=== PATIENT | female | born 1950 | race Caucasian/White ===

== ENCOUNTER 2016-11-19 07:52 | Emergency (ER) | payer OTHER ==
[~2016-11-19] VITALS: Ht 162.6 cm; Wt 76.2 kg
[~2016-11-19 07:52] MED LIST: AMLODIPINE; ATIVAN0.5 MG PO; ATIVAN1 MG PO; CEFTIN500 MG PO; CIPROFLOXACIN500 M1 PO; COZAAR; COZAAR 50 MG TA50 MG PO; EXCEDRIN CAPLE1 EACH PO; FLAGYL 250 MG250 MG PO; FOLIC ACID1 MG PO; FUROSEMIDE 40 M40 M1 PO; HYDROCODON-ACE1 EAC1 PO; HYDROCODON-ACE1 EAC8 PO; KEPPRA1000 MG PO; LAMICTAL 25 MG25 M1 PO; LIPITOR 20 MG T20 M1 PO; LOMOTIL TABLET1 EACH PO; MOTION RELIEF25 MG PO; NEURONTIN 300300 M1 PO; NORCO 7.5-3251 EACH PO; NORVASC 5 MG TAB5 MG PO; ONDANSETRON HCL4 M3 PO; OXCARBAZEPINE150 MG PO; PHENERGAN 25 MG25 MG PO; POTASSIUM CHLO10 ME1 PO; PREDNISONE 5 MG5 M1 PO; PROPRANOLOL 1010 M1 PO; RIZATRIPTAN10 M1 PO; TRAMADOL 50 MG50 MG PO; TYLENOL EX-STR500 M2 PO; ULTRAM 50MG TAB50 MG PO; VIMPAT100 MG PO; ZANTAC 150MG T150 M1 PO; ZIAC 5-6.25 MG1 EACH PO; ZOFRAN 4 MG ORAL4 M1 DIS; ZOFRAN ODT4 MG PO; ZOFRAN4 MG PO; ZYRTEC10 M2 PO
[2016-11-19] MEDS ORDERED: NORCO 5-325 TA1 EACH PO (10:10)
== END 2016-11-19 10:20 | disposition home or self-care (01) ==
LOC: ER 07:52
DX: S02.2XXA Fracture of nasal bones, initial encounter for closed fracture (principal); S01.512A Laceration without foreign body of oral cavity, initial encounter; S01.521A Laceration with foreign body of lip, initial encounter; I10 Essential (primary) hypertension; Z86.73 Personal history of transient ischemic attack (TIA), and cerebral infarction without residual deficits; Z98.890 Other specified postprocedural states; Z90.710 Acquired absence of both cervix and uterus; Z88.2 Allergy status to sulfonamides; Z88.8 Allergy status to other drugs, medicaments and biological substances; W18.39XA Other fall on same level, initial encounter; Y93.01 Activity, walking, marching and hiking; Y92.89 Other specified places as the place of occurrence of the external cause; Y99.8 Other external cause status

== ENCOUNTER → 2017-02-08 | Outpatient (CLI) | payer OTHER ==
[~2017-02-08] MED LIST changes: +NORCO 5-325 TA1 EACH PO
== END ==
LOC: CAT 02-04 15:02
DX: J32.0 Chronic maxillary sinusitis (principal); J32.2 Chronic ethmoidal sinusitis

== ENCOUNTER → 2017-03-17 | Outpatient (CLI) | payer OTHER | LOC: RAD 12:20 | DX: M16.11 Unilateral primary osteoarthritis, right hip (principal) ==

== ENCOUNTER → 2017-07-12 | Outpatient (CLI) | payer OTHER ==
[~2017-07-12] MED LIST changes: +AFRIN30 ML NASAL; +CLARITIN10 MG PO; +LASIX 40 MG TAB40 M2 PO; +MUCINEX600 MG PO; +NORVASC5 MG PO; +TRAZODONE HCL50 MG PO
== END ==
LOC: MRI 12:14
DX: S43.421A Sprain of right rotator cuff capsule, initial encounter (principal); M19.011 Primary osteoarthritis, right shoulder; X58.XXXA Exposure to other specified factors, initial encounter; Y93.89 Activity, other specified; Y92.89 Other specified places as the place of occurrence of the external cause; Y99.8 Other external cause status

== ENCOUNTER 2017-08-24 07:48 | Inpatient (IN) | payer OTHER ==
[2017-08-15 14:08] LABS: HEMATOCRIT 37.9 % (37.0-47.0); HEMOGLOBIN 12.8 gm/dL (12.0-15.0); MCH 32.5 pg (26.0-34.0); MCHC 33.9 g/dL (28.0-37.0); MCV 95.9 fL (80.0-100.0); RBC 3.95 mil/uL (4.20-5.00); RDW 14.9 % (10.5-14.5); WBC 8.8 thou/uL (4.0-11.0)
[2017-08-15 14:10] LABS: URINE BILIRUBIN NEGATIVE (Negative); URINE BLOOD NEGATIVE (Negative); URINE CLARITY CLEAR; URINE COLOR YELLOW; URINE GLUCOSE-RANDOM* NEGATIVE (Negative); URINE KETONES NEGATIVE (Negative); URINE LEUKOCYTES-REFLEX NEGATIVE (Negative); URINE NITRITE-REFLEX NEGATIVE (Negative); URINE PROTEIN (DIPSTICK) NEGATIVE (Negative); URINE SPECIFIC GRAVITY 1.015 (1.005-1.035); URINE UROBILINOGEN 0.2 E.U./dl (0.2-1.0)
[2017-08-15 14:15] LABS: CREATININE 1.1 mg/dL (0.6-1.0); POTASSIUM 5.3 mmol/L (3.5-5.1)
[2017-08-15 14:22] LABS: PROTIME 10.3 Seconds (9.3-11.4)
[~2017-08-24] VITALS: Ht 162.6 cm; Wt 80.3 kg
--- NOTE | ~2017-08-24 | O ---
[facility] [address] OPERATIVE REPORT Name: TAYLOR STERN Room #: 411-P [facility] IN M.R.#: [id number] Admission: 08/24/17 Attend Phys: Josef Henriquez Discharge: 08/25/17 Date of : 48 Report #: [id number] THIS REPORT FOR: //name// CC: Peter Trejo DATE OF SERVICE: 08/24/2017 PREOPERATIVE DIAGNOSIS: Right shoulder osteoarthritis with biceps tendinopathy. POSTOPERATIVE DIAGNOSIS: Right shoulder osteoarthritis with biceps tendinopathy. PROCEDURE PERFORMED: Right total shoulder arthroplasty with open biceps tenodesis. SURGEON: Josef Trejo. REINSURANCE CLAIMS ANALYST: Olivia Tavera PA-C. ANESTHESIA: General with preoperative ultrasound-guided interscalene block. FLUIDS: 1000 mL crystalloid. ESTIMATED BLOOD LOSS: Approximately 50 mL. IMPLANTS UTILIZED: DePuy Global Unite size 10 standard stem with a 135 degree size 10 proximal body 44 x 18 eccentric humeral head with a size 40 anchor peg glenoid. DESCRIPTION OF PROCEDURE: After proper identification of the patient and operative site in preoperative holding area, the operative site was signed by myself. Prophylactic antibiotics given. The patient elected to receive an interscalene block after reviewing the risks, benefits, alternatives and potential complications with anesthesia. After a satisfactory ultrasound-guided block, the patient was brought back to the operative suite. After induction of satisfactory general endotracheal anesthesia, she was carefully positioned in the beach-chair position with head of bed elevated approximately 40 degrees. Care was taken to position the head and neck in a neutral alignment. The right shoulder was sterilely prepped and draped in usual manner and final skin draping was with Ioban. A Hallspot limb positioning system was utilized throughout the entire procedure to aid in positioning of the upper extremity. Anterior deltopectoral approach was planned. Skin was incised sharply. Full thickness skin flaps were developed. Cephalic vein was identified and retracted laterally and the deltopectoral interval was opened. Subdeltoid space was carefully freed bluntly and a Ced deltoid retractor was then used to retract the deltoid. At [facility] [address] [place] [address] OPERATIVE REPORT Name: JARREDTAYLOR SUE Room #: 411-P [facility] IN M.R.#: [id number] Admission: 08/24/17 Attend Phys: Josef Henriquez Discharge: 08/25/17 Date of : 48 Report #: [id number] this point, upper border of the pectoralis major was carefully released and the long head of biceps tendon was tenodesed to the undersurface of the pectoralis major. This was subsequently repaired at the end of the procedure. Long head biceps tendon was followed proximally. Bicipital groove was opened as well as the rotator interval. Tenosynovitis was appreciated about the biceps tendon as well as partial thickness tearing. Anterior circumflex vessels were identified, tied and ligated and then cauterized. A lesser tuberosity osteotomy was performed with an osteotome and the anterior capsule was carefully released off the glenoid neck. At this point, the humeral head was delivered. Advanced degenerative changes were noted on both sides of the joint and 135-degree template was used to plan the humeral head osteotomy. The rotator cuff was intact. There was some thinning of the supraspinatus noted, but it was otherwise intact with no evidence of real fraying or tearing, just more thinning. The rotator cuff was carefully protected and a humeral head osteotomy in approximately 25 degrees of retroversion was performed. The head measured 44 mm on the backtable in diameter. Peripheral osteophytes were carefully removed. The humerus was then reamed by hand up to a size 10 stem. It was broached and then a trial implant was seated. The patient had excellent bone quality and the final mm or so of insertion, it seemed like the implant went to bottom out and I did not want to push this any further for risk of periprosthetic fracture of the humerus. A protection plate was applied. The shoulder was reduced. Anterior capsule was excised off the subscapularis and then a Bankart retractor was placed anteriorly to retract the subscap and protect it. The remaining biceps tendon and labrum was carefully released circumferentially as well as the inferior capsule off the inferior glenoid. Care was taken to identify and protect the axillary nerve throughout the entire procedure. Wound was thoroughly irrigated with normal saline. glenoid retractors were placed. There was excellent glenoid visualization. A 40 mm glenoid was chosen, 44 mm glenoid was templated, but the 40 provided the best overall fit due to the size of her glenoid. This was positioned. Guide pin was inserted. Glenoid face was reamed. Any remaining soft tissue was carefully removed. The central peg was drilled. This bone was saved for bone grafting on the glenoid central peg. The multipin guide was inserted and the peripheral pegs were drilled. Derotation pegs were utilized. All of the drill holes were contained. Glenoid vault was thoroughly irrigated with normal saline. FloSeal was utilized for anticoagulation. This was removed with irrigation and suction while the trial was prepared on the back table as well while the implant was bone grafted on the back table and cement was prepared. Trial was fully a 40 mm glenoid trial, was fully seated, had excellent stability and this was removed and then the FloSeal was utilized. Next, Tuohy syringe was used to inject and pressurize peripheral pegs. There was no cement in the central aspect. Any excess bone was removed and then the implant was carefully impacted into position, it was fully seated and held in place until the cement had cured and the glenoid was stable. Wound was thoroughly irrigated with normal saline. The glenoid was protected with a plastic tear and then the humerus was approached. A 44 x 18 eccentric humeral head provided the best overall recreation of the proximal humeral anatomy and [address] [address] OPERATIVE REPORT Name: TAYLOR STERN Room #: 411-P [facility] IN M.R.#: [id number] Admission: 08/24/17 Attend Phys: Josef Henriquez Discharge: 08/25/17 Date of : 48 Report #: [id number] the shoulder had approximately 50% translation when reduced posteriorly. Trial implants were removed. The Global Unite broach was carefully inserted. It was removed. Four drill holes were placed around the lesser tuberosity and within the bicipital groove with #2 FiberWires. These were used for the subsequent repair. The inferior 2 sutures were placed around the implant which had been prepared on the back table, assembled and tightened. It was carefully impacted into position. Next, the head was placed. Rotation was verified and it was impacted into position. Shoulder was reduced. It was stable with a satisfactory recreation of the proximal humeral anatomy. The subscapularis was reduced and repaired with modified Jett-Horace technique with four #2 FiberWires and then the lateral portion of the rotator interval was repaired in a [id number]-cf-kkxdh manner with #2 FiberWire. The patient could only externally rotate about 5 degrees preoperatively and she could easily externally rotated 40-45 degrees following the repair and capsular releases. The wound was again thoroughly irrigated with normal saline, dried, 1 gram of vancomycin powder was utilized half of it within the deep tissues, half of it more superficial. 0 Vicryl, 2-0 Vicryl and final skin closure was with a running Monocryl stitch. Dermabond was applied to seal the wound. Sterile dressing was applied as well as a sling and abduction pillow. Qualified criminal legal assistant was utilized throughout the entire procedure to aid in patient limb positioning, visualization and retraction of the soft tissues, instrument passage closure and sling and dressing application. <ELECTRONICALLY SIGNED> By: Josef Trejo MD 08/26/17 1304 1115 1144 Josef Trejo MD /nt
--- NOTE | ~2017-08-24 | H ---
[facility] [place] [address] HISTORY AND PHYSICAL Name: TAYLOR STERN Room #: 411-P ADM IN M.R.#: [id number] Admission: 08/24/17 Attend Phys: Josef Henriquez Discharge: Date of : 48 Report #: [id number] THIS REPORT FOR: //name// CC: Peter Trejo CHIEF COMPLAINT: Right shoulder pain. HISTORY OF PRESENT ILLNESS: The patient initially presented in our office complaining of persistent right shoulder pain. The patient reports that she has fallen on the shoulder approximately 6 times in the past. The pain following her most recent fall has not improved and she has been using a cane for assisted ambulation. The patient reports worsening right shoulder pain with use. The patient reports relief is better, but not long lasting with medications, heat and rest. PAST MEDICAL HISTORY: Significant for arthritis, easy bruising, fibromyalgia, hypertension, rheumatoid arthritis, seizure disorder and other illness. PAST SURGICAL HISTORY: Hysterectomy, appendectomy and tonsillectomy. REVIEW OF SYSTEMS: GENERAL: Denies any fevers, chills or malaise. MUSCULOSKELETAL: Positive for joint pain, stiffness and arthritis. The remainder of the complete review of systems is negative. FAMILY HISTORY: Significant for arthritis and heart disease. SOCIAL HISTORY: The patient is left handed. She is and lives with others. She denies any alcohol use and exercises approximately 5-10 hours per week. MEDICATIONS: Lamotrigine 100 mg oral tabs, propranolol HCL 10 mg oral tabs, amlodipine besylate 5 mg oral tabs, lorazepam and [place] 7.5/325. ALLERGIES: SULFA. PHYSICAL EXAMINATION: VITAL SIGNS: Height 64 inches, weight 164 pounds and BMI 28. GENERAL: The patient is awake and alert, in no acute distress. HEART: Regular rate and rhythm. No murmurs. PULMONARY: Clear to auscultation bilaterally. ABDOMEN: Soft, nontender. Bowel sounds positive. EXTREMITIES: Right shoulder extremity is neurovascularly intact. Skin is nontender, dry and intact. Passive flexion is measured to 100 degrees, passive external rotation to 5 degrees, passive internal rotation to posterior superior iliac spine. Tenderness to palpation on the anterolateral shoulder as well as [facility] [address] [place] [address] HISTORY AND PHYSICAL Name: TAYLOR STERN Room #: [facility] ADM IN M.R.#: [id number] Admission: 08/24/17 Attend Phys: Josef Henriquez Discharge: Date of : 48 Report #: [id number] the posterolateral shoulder. No tenderness to palpation of the sternoclavicular joint, clavicle, AC joint, acromion, rhomboids, upper trapezius or proximal humerus. Strength Testing: Supraspinatus 5/5, external rotation 5/5, internal rotation 5/5 and deltoids 5/5. Pain with strength testing of the rotator cuff is noted. Neer and Orellana tests are positive. X-RAYS: X-rays performed in the office on 07/19/2017, ordered and interpreted by Dr. Josef Trejo, showed two views of the right shoulder that showed no degenerative change at the acromioclavicular joint. There is a type 2 acromion. The glenohumeral joint is well reduced with significant degenerative change noted here. IMAGING STUDIES: Report of the MRI of the right shoulder, performed at [facility] on 07/12/2017, shows moderate glenohumeral joint osteoarthritis. Chronic degenerative tear and attenuation of the posterior and inferior labrum was slight, posterior subluxation of the humeral head. Intact rotator cuff. ASSESSMENT: Right shoulder pain, osteoarthritis. PLAN: MRI findings were reviewed with the patient in the office, we have reviewed continued non-operative management versus operative intervention. We discussed performing a right total shoulder arthroplasty with biceps tenodesis and addressing the above-mentioned diagnosis. The risks, benefits, alternatives and potential treatments were reviewed. The short-term hospitalization was reviewed. We have discussed anticoagulation and DVT prophylaxis postoperatively. We discussed the potential time in a sling, the need for physical therapy and potential time off work and/or return on a awwfeum-xc-mxcvo duty type basis. Preoperatively, the patient will use benzoyl peroxide soap for 7 days preop. Pain management was discussed and pain medications will be given on the day of surgery as well as a prescription for pain medication to take at home. The anesthesiologist will discuss the utilization of a nerve block preoperatively or postoperatively. He may have this elected to perform postoperative pain. We discussed the [employer] website where further information and videos pertaining to the above-mentioned procedure can be reviewed. Arthroplasty handout had been given to the patient at previous appointment. The surgery had been demonstrated using a shoulder model. We discussed the need for prophylactic antibiotic treatment for invasive dental procedures postoperatively. The need for serial radiographic monitoring every 1-2 years postoperatively was also discussed. Pending medical clearance, the patient has elected to proceed with the above-mentioned procedure. I have recommended that the patient continue to use a cane for assisted ambulation given her history of frequent falls. Questions were encouraged, all were [facility] [address] [place] [address] HISTORY AND PHYSICAL Name: TAYLOR STERN Room #: 411-P ADM IN M.R.#: [id number] Admission: 08/24/17 Attend Phys: Josef Henriquez Discharge: Date of : 48 Report #: [id number] answered and the patient demonstrated understanding of the above-mentioned discussion. <ELECTRONICALLY SIGNED> By: LIANA Adler 08/25/17 1232 1543 1611 LIANA Adler /nt
--- NOTE | ~2017-08-24 | EKG ---
[address] [address] ELECTROCARDIOGRAM REPORT Name: TAYLOR STERN Room #: PRE IN .R.#: [id number] Admission: Attend Phys: Josef Henriquez Discharge: Date of : 48 Report #: [id number] THIS REPORT FOR: //name// [facility] Test Date: 2017-08-15 Test Time: 13:38:28 Pat Name: TAYLOR STERN Department: Room: Gender: F Pharmacy Ancillary: Hermilo VERGARA : 1950 Requested By: Josef Trejo Order Number: [id number] MD: Ulysses Douglass Measurements Intervals [place] Rate: 55 P: 13 OR: 162 QRS: 2 QRSD: 100 T: 15 QT: 447 QTc: 428 Interpretive Statements Sinus bradycardia Otherwise no significant abnormality Compared to ECG 10/14/2015 13:37:18 No significant changes Electronically Signed On 08-16-2017 13:18:48 CDT by Ulysses Douglass [email or web address] <ELECTRONICALLY SIGNED> By: Ulysses Douglass MD, [facility] 08/16/17 1318 1338 1338 Ulysses Douglass MD, FACC /EPI
[2017-08-24 08:30] VITALS: BP 157/74
[2017-08-24 20:03] VITALS: BP 155/61
[2017-08-25 04:52] VITALS: BP 132/54
[2017-08-25 06:33] LABS: HEMATOCRIT 32.5 % (37.0-47.0); HEMOGLOBIN 10.9 gm/dL (12.0-15.0)
[2017-08-25 07:20] VITALS: BP 133/60
[2017-08-25 11:50] LABS: POTASSIUM 4.1 mmol/L (3.5-5.1)
[2017-08-25 14:26] VITALS: BP 133/60
== END 2017-08-25 16:17 | disposition home or self-care (01) | DRG 470 ==
LOC: TBA 07:48 → OR 07:48 → PRE 09:03 → EDSTATUS 09:23 → OR 09:24 → PRE 12:29 → 4N 15:19 → OR 15:19 → ENTRNSPT 08-25 16:00 → 4N 08-25 16:17
PROVIDERS: Orthopaedic Surgery Sports Medicine; Physician Assistant Surgical
DX: M19.011 Primary osteoarthritis, right shoulder (principal); M75.21 Bicipital tendinitis, right shoulder; G40.909 Epilepsy, unspecified, not intractable, without status epilepticus; I10 Essential (primary) hypertension; M06.9 Rheumatoid arthritis, unspecified; Z90.710 Acquired absence of both cervix and uterus; Z90.49 Acquired absence of other specified parts of digestive tract; Z82.61 Family history of arthritis; Z82.49 Family history of ischemic heart disease and other diseases of the circulatory system; Z88.2 Allergy status to sulfonamides; Z88.8 Allergy status to other drugs, medicaments and biological substances; Z79.899 Other long term (current) drug therapy
CPT/HCPCS: 10790; 50010; 50101; 50172; 50386; 50417; 50697; 50733; 50935; 51751; 51771; 52138; 53000; 53078; 54118; 55435; 56521; 56524; 56525; 56526; 56530; 57095; 62110; 62900; 64039; 70005

== ENCOUNTER 2019-11-02 10:47 | Emergency (ER) | payer OTHER ==
[~2019-11-02] VITALS: Ht 162.6 cm; Wt 81.7 kg
[2019-11-02] MEDS ORDERED: NORCO 5-325 TA1 EAC1 PO (12:00)
[2019-11-02 12:15] VITALS: BP 127/84
== END 2019-11-02 12:15 | disposition home or self-care (01) ==
LOC: ER 10:47
DX: S50.02XA Contusion of left elbow, initial encounter (principal); M79.632 Pain in left forearm; I10 Essential (primary) hypertension; M79.7 Fibromyalgia; Z86.718 Personal history of other venous thrombosis and embolism; Z86.73 Personal history of transient ischemic attack (TIA), and cerebral infarction without residual deficits; Z90.89 Acquired absence of other organs; Z90.710 Acquired absence of both cervix and uterus; Z79.899 Other long term (current) drug therapy; Z88.8 Allergy status to other drugs, medicaments and biological substances; Z88.2 Allergy status to sulfonamides; W01.0XXA Fall on same level from slipping, tripping and stumbling without subsequent striking against object, initial encounter; Y93.89 Activity, other specified; Y92.89 Other specified places as the place of occurrence of the external cause; Y99.8 Other external cause status

== ENCOUNTER 2020-06-05 17:57 | Emergency (ER) | payer OTHER ==
[~2020-06-05] VITALS: Ht 162.6 cm; Wt 77.1 kg
[~2020-06-05 17:57] MED LIST changes: +NORCO 5-325 TA1 EAC1 PO
[2020-06-05 20:30] VITALS: BP 155/66
== END 2020-06-05 20:30 | disposition home or self-care (01) ==
LOC: ER 17:57
DX: M54.5 Low back pain (principal); R51.9 Headache, unspecified; M25.511 Pain in right shoulder; I10 Essential (primary) hypertension; Z90.710 Acquired absence of both cervix and uterus; Z90.89 Acquired absence of other organs; Z79.899 Other long term (current) drug therapy; Z88.2 Allergy status to sulfonamides; Z88.8 Allergy status to other drugs, medicaments and biological substances; W01.0XXA Fall on same level from slipping, tripping and stumbling without subsequent striking against object, initial encounter; Y93.89 Activity, other specified; Y92.89 Other specified places as the place of occurrence of the external cause; Y99.8 Other external cause status

== ENCOUNTER 2021-04-03 11:10 | Emergency (ER) | payer OTHER ==
[~2021-04-03] VITALS: Ht 162.6 cm; Wt 81.2 kg
--- NOTE | 2021-04-03 11:46 | EKG ---
[place] [address] [facility] [place] [address] ELECTROCARDIOGRAM REPORT Name: TAYLOR STERN Room #: PRE [facility]..#: [id number] Admission: Attend Phys: Discharge: Date of : 48 Report #: [id number] [facility] ED Test Date: 2021-04-03 Test Time: 11:42:30 Pat Name: TAYLOR STERN Department: Room: Gender: F Business Services Sales Representative: RYAN : 1950 Requested By: Farhat Alejandre Order Number: [id number] MD: Baltazar Jameson Measurements Intervals [place] Rate: 53 P: 6 WV: 171 QRS: -7 QRSD: 101 T: 20 QT: 419 QTc: 394 Interpretive Statements Sinus rhythm Low voltage, precordial leads Left ventricular hypertrophy Baseline wander in lead(s) V1,V5,V6 Compared to ECG 08/15/2017 13:38:28 Low QRS voltage now present Left ventricular hypertrophy now present Sinus bradycardia no longer present Electronically Signed On 04-03-2021 11:46:32 CDT by Baltazar Jameson [email or web address] <ELECTRONICALLY SIGNED> By: Baltazar Jameson MD, [facility] 04/03/21 1146 1142 114 Baltazar Jameson MD, FAC /EPI
[2021-04-03 12:04] LABS: URINE BILIRUBIN NEGATIVE (Negative); URINE BLOOD NEGATIVE (Negative); URINE CLARITY CLEAR; URINE COLOR YELLOW; URINE GLUCOSE-RANDOM* NEGATIVE (Negative); URINE KETONES NEGATIVE (Negative); URINE LEUKOCYTES-REFLEX TRACE (Negative); URINE NITRITE-REFLEX NEGATIVE (Negative); URINE PROTEIN (DIPSTICK) NEGATIVE (Negative); URINE UROBILINOGEN 0.2 E.U./dl (0.2-1.0)
[2021-04-03 12:10] LABS: ABSOLUTE NEUTROPHILS 6.5 thou/uL (1.4-8.2); BASOPHILS 0.9 % (0.0-2.0); EOSINOPHILS 1.1 % (0.0-3.0); HEMATOCRIT 27.8 % (37.0-47.0); HEMOGLOBIN 8.8 gm/dL (12.0-15.0); LYMPHOCYTES 17.4 % (24.0-44.0); MCHC 31.7 g/dL (28.0-37.0); MCV 82.1 fL (80.0-100.0); MONOCYTES 10.3 % (1.0-8.0); PLATELET COUNT 412 thou/uL (150-400); POLYS 70.3 % (36.0-66.0); RBC 3.39 mil/uL (4.20-5.00); RDW 18.3 % (10.5-14.5); WBC 9.2 thou/uL (4.0-11.0)
[2021-04-03 12:25] LABS: CALCIUM 9.2 mg/dL (8.5-10.1); CREATININE 1.1 mg/dL (0.6-1.0); POTASSIUM 5.6 mmol/L (3.5-5.1)
[2021-04-03 13:53] LABS: ANISOCYTOSIS 2+
[2021-04-03 16:58] VITALS: BP 134/51
== END 2021-04-03 17:05 | disposition home or self-care (01) ==
LOC: ER 11:10
PROVIDERS: Student in an Organized Health Care Education/Training Program
DX: R42 Dizziness and giddiness (principal); R51.9 Headache, unspecified; I10 Essential (primary) hypertension; M79.7 Fibromyalgia; Z90.49 Acquired absence of other specified parts of digestive tract; Z90.710 Acquired absence of both cervix and uterus; Z98.890 Other specified postprocedural states; Z79.891 Long term (current) use of opiate analgesic; Z79.899 Other long term (current) drug therapy; Z88.5 Allergy status to narcotic agent; Z88.2 Allergy status to sulfonamides; Z88.8 Allergy status to other drugs, medicaments and biological substances; Z88.6 Allergy status to analgesic agent; Z88.3 Allergy status to other anti-infective agents; Z91.041 Radiographic dye allergy status

== ENCOUNTER 2021-06-28 07:01 | Emergency (ER) | payer OTHER ==
[~2021-06-28] VITALS: Ht 160 cm; Wt 81.2 kg
--- NOTE | ~2021-06-28 | EMS ---
[address] [address] EMS Patient Care Report Name: TAYLOR STERN Room #: DEP MAY Espinoza#: [id number] Admission: 06/28/21 Attend Phys: Discharge: 06/28/21 Date of : 48 Report #: [id number] THIS REPORT FOR: //name// Report Transmitted: 06/29/2021 14:31 EMS Care Summary [place], [place]/[facility] Incident [id number] @ 06/28/2021 06:13 Incident Location [address] [place] [address] 803 Patient TAYLOR STERN Female, 71 Years 1950 Patient Address [address] [place] [address] [place] [address] Patient History Hypertension (HTN),Seizures, Patient Allergies No known allergies, Patient Medications Other, Chief Complaint vertigo Disposition Transported No Lights/Benjamin Dispatch Reason Sick Person Transported To [facility] Narrative patient is found sitting on a couch at the scene. patient states that she woke up this morning and was having a vertigo episode. patient says that this has happened before and that it usually triggers a headache, which it has done. [address] [address] EMS Patient Care Report Name: TAYLOR STERN Room #: DEP Olga#: [id number] Admission: 06/28/21 Attend Phys: Discharge: 06/28/21 Date of : 48 Report #: [id number] patient she was to be transported because she is afraid to stand because of possible falls. patient has not had any falls today or syncope. patient has no obvious signs stroke. patient denies any illness or other new pain. patient does not appear to be in any distress. patient has no obvious injuries. patient remains alert during transport. Initial Vitals @06:38P: 54,R: 14,BP: 174/67,Pain: 9/10,GCS: 15,CO: 2,SpO2: 95,Revised Trauma: 12, @06:36P: 56,R: 16,BP: 187/78,Pain: 9/10,GCS: 15,SpO2: 96,Revised Trauma: 12, Assessments @06:26MENTAL:No Abnormalities,SKIN:No Abnormalities,HEENT:Head/Face: No Abnormalities,Eyes: No Abnormalities,Neck/Airway: No Abnormalities,LUNG SOUNDS:General: No Abnormalities,Left Upper: No Abnormalities,Right Upper: No Abnormalities,Left Lower: No Abnormalities,Right Lower: No Abnormalities,ABDOMEN:General: No Abnormalities,Left Upper: No Abnormalities,Right Upper: No Abnormalities,Left Lower: No Abnormalities,Right Lower: No Abnormalities,PELVIS//GI:No Abnormalities,EXTREMITIES:Left Arm: No Abnormalities,Right Arm: No Abnormalities,Left Leg: No Abnormalities,Right Leg: No Abnormalities,PULSE:NEURO:No Abnormalities, Impression Dizziness Procedures @06:26 ALS Assessment Response: UnchangedSucceeded @06:31 Stretcher Response: Unchanged Timeline 06:00,Call Received 06:00,Dispatch Notified 06:13,Dispatched 06:15,En Route 06:23,On Scene 06:26,At Patient 06:26,ALS Assessment,Response: UnchangedSucceeded, 06:31,Stretcher,Response: Unchanged 06:36,BP: 187/78 M,PULSE: 56,RR: 16 R,SPO2: 96 Ox,ETCO2: ,BG: ,PAIN: 9,GCS: 15, 06:38,BP: 174/67 M,PULSE: 54,RR: 14 R,SPO2: 95 Ox,ETCO2: ,BG: ,PAIN: 9,GCS: 15, 06:41,Depart Scene 07:30,At Destination 07:30,Call Closed Disclaimer [address] [address] EMS Patient Care Report Name: TAYLOR STERN Room #: DEP Olga#: [id number] Admission: 06/28/21 Attend Phys: Discharge: 06/28/21 Date of : 48 Report #: [id number] v1.1 Copyright 2021 [employer] This EMS Care Summary contains data elements from the applicable legal record (which may be displayed differently). It is designed to provide pertinent information for the following purposes: continuity of care, clinical quality, and state data reporting. The complete legal record is available to ED staff and administrators of the receiving hospital in [employer] Patient Tracker. All data is provided "as is."
[2021-06-28] MEDS ORDERED: IRON325 M1 PO (07:10)
[2021-06-28] MEDS ORDERED: TYLENOL325 MG PO (07:10)
[2021-06-28 07:18] LABS: ABSOLUTE NEUTROPHILS 6.5 thou/uL (1.4-8.2); BASOPHILS 0.6 % (0.0-2.0); HEMATOCRIT 41.4 % (37.0-47.0); HEMOGLOBIN 13.2 gm/dL (12.0-15.0); LYMPHOCYTES 16.1 % (24.0-44.0); MCH 30.5 pg (26.0-34.0); MCV 95.4 fL (80.0-100.0); MONOCYTES 7.9 % (1.0-8.0); PLATELET COUNT 307 thou/uL (150-400); POLYS 74.4 % (36.0-66.0); RBC 4.34 mil/uL (4.20-5.00); RDW 18.3 % (10.5-14.5); WBC 8.7 thou/uL (4.0-11.0)
[2021-06-28 07:45] LABS: CALCIUM 9.5 mg/dL (8.5-10.1); CREATININE 1.2 mg/dL (0.6-1.0); POTASSIUM 4.5 mmol/L (3.5-5.1)
[2021-06-28 07:51] LABS: ALBUMIN 4.3 g/dL (3.4-5.0); TOTAL BILIRUBIN 0.4 mg/dL (0.2-1.0); TOTAL PROTEIN 7.3 g/dL (6.4-8.2)
[2021-06-28] MEDS ORDERED: DIAZEPAM2 MG PO (09:19)
[2021-06-28 09:20] LABS: URINE BLOOD NEGATIVE (Negative); URINE CLARITY CLEAR; URINE COLOR YELLOW; URINE GLUCOSE-RANDOM* NEGATIVE (Negative); URINE KETONES NEGATIVE (Negative); URINE LEUKOCYTES-REFLEX 2+ (Negative); URINE NITRITE-REFLEX POSITIVE (Negative); URINE PROTEIN (DIPSTICK) NEGATIVE (Negative); URINE SPECIFIC GRAVITY >= 1.030 (1.005-1.035); URINE UROBILINOGEN 0.2 E.U./dl (0.2-1.0)
[2021-06-28 09:22] LABS: ICTOTEST (BILI CONFIRMATORY) Negative (Negative); URINE BILIRUBIN NEGATIVE (Negative)
[2021-06-28] MEDS ORDERED: ZOFRAN ODT4 MG PO (09:31)
[2021-06-28] MEDS ORDERED: CEPHALEXIN500 MG PO (09:32)
[2021-06-28 10:05] LABS: SQUAMOUS 4-10 Moderate /LPF (0-3)
[2021-06-28 10:06] LABS: CASTS None Seen /LPF (None Seen); CRYSTALS None Seen /LPF (None Seen); URINE RBC None Seen /HPF (NONE SEEN)
[2021-06-28 10:46] VITALS: BP 127/58
--- NOTE | 2021-06-28 13:02 | EKG ---
[place] [address] [facility] [place] [address] ELECTROCARDIOGRAM REPORT Name: TAYLOR STERN [facility] [id number] Admission: 06/28/21 Attend Phys: Discharge: 06/28/21 Date of : 48 Report #: [id number] [facility] ED Test Date: 2021-06-28 Test Time: 07:06:13 Pat Name: TAYLOR STERN Department: Room: Gender: F Monologist: MOINCA : 1950 Requested By: Tino Munoz Order Number: [id number] MD: Ulysses Douglass Measurements Intervals [place] Rate: 56 P: 31 GA: 171 QRS: -13 QRSD: 100 T: 2 QT: 451 QTc: 436 Interpretive Statements Sinus bradycardia Left ventricular hypertrophy Compared to ECG 04/03/2021 11:42:30 No significant changes Electronically Signed On 06-28-2021 13:01:55 [employer] by Ulysses Douglass [email or web address] <ELECTRONICALLY SIGNED> By: Ulysses Douglass MD, [facility] 06/28/21 1301 0706 0706 Ulysses Douglass MD, FACC /EPI
== END 2021-06-28 11:01 | disposition home or self-care (01) ==
LOC: ER 07:01
PROVIDERS: Emergency Medicine
DX: R42 Dizziness and giddiness (principal); N39.0 Urinary tract infection, site not specified; I10 Essential (primary) hypertension; M79.7 Fibromyalgia; Z90.49 Acquired absence of other specified parts of digestive tract; Z90.89 Acquired absence of other organs; Z90.710 Acquired absence of both cervix and uterus; Z79.899 Other long term (current) drug therapy; Z88.2 Allergy status to sulfonamides; Z88.1 Allergy status to other antibiotic agents; Z88.6 Allergy status to analgesic agent; Z88.8 Allergy status to other drugs, medicaments and biological substances

== ENCOUNTER 2021-07-01 13:25 | Emergency (ER) | payer OTHER ==
[~2021-07-01] VITALS: Ht 160 cm; Wt 80.7 kg
--- NOTE | ~2021-07-01 | EMS ---
[address] [address] EMS Patient Care Report Name: TAYLOR STERN Room #: DEP MAY Espinoza#: [id number] Admission: 07/01/21 Attend Phys: Discharge: 07/01/21 Date of : 48 Report #: [id number] THIS REPORT FOR: //name// Report Transmitted: 07/02/2021 12:50 EMS Care Summary [place], [place]/[facility] Incident [phone] @ 07/01/2021 12:43 Incident Location [address] [place] [address] 803 Patient TAYLOR STERN Female, 71 Years 1950 Patient Address [address] [place] [address] [place] [id number] Patient History Hypertension (HTN),Seizures, Patient Allergies No known allergies, Patient Medications Other, Chief Complaint HIP PAIN Disposition Transported No Lights/[place] Reason Falls Transported To [facility] Narrative DISPATCHED TO A 71 Y/O FEMALE. UPON ARRIVAL, WE FOUND OUR PT SITTING IN A CHAIR IN THE LIVING ROOM. PT WAS ASSESSED. PT NOTED A GLF. PT DENIED LSOC, HEAD, NECK, OR BACK PAIN. PT WAS ASSISTED TO THE COT. IN THE AMBULANCE, VITALS WERE [address] [address] EMS Patient Care Report Name: TAYLOR STERN Room #: DEP ER [employer]#: [id number] Admission: 07/01/21 Attend Phys: Discharge: 07/01/21 Date of : 48 Report #: [id number] OBTAINED. DURING TRANSPORT, PT VOICED NO FURTHER COMPLAINTS OR CHANGES. AT [facility], REPORT WAS GIVEN TO RN. PT WAS ASSISTED TO A BED. RN SIGNED FOR TRANSPORT. Initial Vitals @13:18P: 78,BP: 142/80,SpO2: 99, @13:01P: 80,R: 14,BP: 134/74,Pain: 2/10,GCS: 15,SpO2: 99,Revised Trauma: 12, Assessments @12:53MENTAL:No Abnormalities,SKIN:No Abnormalities,HEENT:Head/Face: No Abnormalities,Eyes: No Abnormalities,Neck/Airway: No Abnormalities,LUNG SOUNDS:General: No Abnormalities,Left Upper: No Abnormalities,Right Upper: No Abnormalities,Left Lower: No Abnormalities,Right Lower: No Abnormalities,ABDOMEN:General: No Abnormalities,Left Upper: No Abnormalities,Right Upper: No Abnormalities,Left Lower: No Abnormalities,Right Lower: No Abnormalities,PELVIS//GI:Pelvis Other,EXTREMITIES:Right Arm: Other,Left Arm: No Abnormalities,Left Leg: No Abnormalities,Right Leg: No Abnormalities,PULSE:NEURO:No Abnormalities, Impression Extremity Pain Procedures @12:53 BLS Assessment Response: Improved @12:55 Stretcher Response: Improved Timeline 12:41,Call Received 12:41,Dispatch Notified 12:43,Dispatched 12:44,En Route 12:51,On Scene 12:52,At Patient 12:53,BLS Assessment,Response: Improved 12:55,Stretcher,Response: Improved 13:01,BP: 134/74 M,PULSE: 80,RR: 14 R,SPO2: 99 Ox,ETCO2: ,BG: ,PAIN: 2,GCS: 15, 13:08,Depart Scene 13:18,BP: 142/80 M,PULSE: 78,RR: R,SPO2: 99 Ox,ETCO2: ,BG: ,PAIN: ,GCS: , 13:27,At Destination 13:52,Call Closed Disclaimer v1.1 Copyright 2021 [employer] This EMS Care Summary contains data elements from the applicable legal record (which may be displayed differently). It is designed to provide pertinent information for the following purposes: continuity of care, clinical quality, [facility] [address] [place] [address] EMS Patient Care Report Name: TAYLOR STERN Room #: DEP Olga#: [id number] Admission: 07/01/21 Attend Phys: Discharge: 07/01/21 Date of : 48 Report #: [id number] and state data reporting. The complete legal record is available to ED staff and administrators of the receiving hospital in [employer] Patient Tracker. All data is provided "as is."
[~2021-07-01 13:25] MED LIST changes: +CEPHALEXIN500 MG PO; +DIAZEPAM2 MG PO; +IRON325 M1 PO; +TYLENOL325 MG PO
[2021-07-01 15:37] VITALS: BP 136/82
== END 2021-07-01 15:38 | disposition home or self-care (01) ==
LOC: ER 13:25
DX: S46.911A Strain of unspecified muscle, fascia and tendon at shoulder and upper arm level, right arm, initial encounter (principal); S70.01XA Contusion of right hip, initial encounter; S70.11XA Contusion of right thigh, initial encounter; I10 Essential (primary) hypertension; Z90.89 Acquired absence of other organs; Z90.710 Acquired absence of both cervix and uterus; Z79.899 Other long term (current) drug therapy; Z88.2 Allergy status to sulfonamides; Z88.8 Allergy status to other drugs, medicaments and biological substances; W01.0XXA Fall on same level from slipping, tripping and stumbling without subsequent striking against object, initial encounter; Y93.89 Activity, other specified; Y92.89 Other specified places as the place of occurrence of the external cause; Y99.8 Other external cause status